=== PATIENT | female | born 1965 | race Caucasian/White ===

== ENCOUNTER 2024-11-03 15:00 | Outpatient (RCR) | payer OTHER, SELFPAY ==
--- NOTE | 2024-08-05 11:34 | OPREHPOC ---
Outpatient Therapy Plan of Care This is a Multidisciplinary Plan of Care that may contain components documented by all disciplines (PT, OT, and ST.) PT Problem 1 PT Problem #1 Knowledge Deficit PT Goal 1 Goal / Goal Update 1. Patient will perform independent HEP 2. Patient will verbalize urge suppression techniques Target Visit 2 PT Problem 2 PT Problem #2 Impaired Strength PT Goal 1 Goal / Goal Update 1. Improve pelvic floor strength to 4/5 to decrease incontinence 2. Improve pelvic floor endurance to 10 seconds to decrease incontinence Target Visit 4 PT Problem 3 PT Problem #3 Impaired Functional ADLs PT Goal 1 Goal / Goal Update 1. Patient able to hold urge to void at least 30 minutes to allow for running errands and doing activities at home Target Visit 4
--- NOTE | 2024-08-05 11:34 | PTOPEVAL1 ---
Assessment and note entered by Rosalba Lr DPT Evaluation Information Assessment Status Evaluation ICD-10 Condition Codes (PT) Weakness R53.1,Stress incontinence N39.3 Subjective Information Pt reports stress incontinence, worsening since 2022. Voids 6 times a day, and 2 more at night. Can hold urge less than 5 minutes. Feels urgency often when coming home and opening her door, being in the kitchen and hearing water running. Reports soreness if she tries to hold too long. Denies pain with urination. Incontinence multiple times a day, often occurs with walking down stairs, sneezing, coughing. Wears pads at all times, 5 a day. States she will not leave the house without them and plans ahead if she is ever leaving the house. BM daily, denies pain or fecal incontinence . Reports some low abdomen pain, not sure if it is truly pelvic pain (worsens with standing at work) . Highest pain in last week 3/10 and lowest 0/10. Pt has been 5 times, 3 deliveries ( vaginal deliveries). Significant tearing with her first and reports 69 stitches. Tubal ligation in 1989. Denies other b/b issues. Patient goal: strengthen pelvic floor Return to MD not currently scheduled. Reported Pain Level Pain Score 0: Self Report Assessment PT Clinical Summary The patient is presenting to skilled therapy with a history of stress incontinence and urinary urgency. She presents with decreased pelvic floor strength and endurance and decreased core strength which are contributing to her daily incontinence and difficulty with activities at home due to urgency. She will highly benefit from therapy to address her impairments in order to improve strength, reduce incontinence, and improve function. Plan of Care Interventions Manual Therapy,Neuro Re-education,Patient/ Caregiver Education,Therapeutic Activities, Therapeutic Exercise PT Services Indicated Yes Treatment Frequency and 1 time a week for 4 visits Duration These treatments will address the objective and functional deficits as defined above. The patient will be advanced safely and appropriately in order for the patient to progress towards his/her prior level of function. Additional exercises will be introduced and as well as a comprehensive home exercise program upon discharge, if needed, ?to ensure carryover of functional gains achieved in the clinic. This treatment plan has been reviewed and agreement upon by the patient.
--- NOTE | 2024-08-26 10:56 | PCPTNOTE ---
Patient did not show up for appointment on 08/26/24. Attempted to call patient but voicemail was not set up.
--- NOTE | 2024-09-01 12:51 | PCPTNOTE ---
Patient did not show up for appointment on 09/01/24. Called patient and left voicemail.
--- NOTE | 2024-09-15 14:08 | PCPTNOTE ---
Patient did not show up for appointment on 09/15/24. Called patient but unable to leave voicemail.
--- NOTE | 2024-09-29 13:46 | OPREHPOC ---
Outpatient Therapy Plan of Care This is a Multidisciplinary Plan of Care that may contain components documented by all disciplines (PT, OT, and ST.) PT Problem 1 PT Problem #1 Knowledge Deficit PT Goal 1 Goal / Goal Update 1. Patient will perform independent HEP 2. Patient will verbalize urge suppression techniques Target Visit 2 Progress Met PT Problem 2 PT Problem #2 Impaired Strength PT Goal 1 Goal / Goal Update 1. Improve pelvic floor strength to 4/5 to decrease incontinence 2. Improve pelvic floor endurance to 10 seconds to decrease incontinence update 09/29/24 1. improved to 3/5 2. met Target Visit 8 Progress Partially Met PT Problem 3 PT Problem #3 Impaired Functional ADLs PT Goal 1 Goal / Goal Update 1. Patient able to hold urge to void at least 30 minutes to allow for running errands and doing activities at home update 09/29/24 1. 15-20 minutes Target Visit 8
--- NOTE | 2024-09-29 13:46 | PTOPPROG ---
Assessment and note entered by Rosalba Lr DPT Evaluation Information Assessment Status Progress ICD-10 Condition Codes (PT) Weakness R53.1,Stress incontinence N39.3 Subjective Information Pt reports some things feel better since starting therapy. Voiding 6 times a day and 1 time at night . Can hold urge to void 15-20 minutes. Has been able to hold longer at work since I had no choice but then would notice some incontinence. Incontinence 2-3 times a day and notices it with movement. Using 3-4 pads a day. Assessment PT Clinical Summary The patient has made some progress in therapy. She reports improved ability to hold urge to void up to 20 minutes and is using less pads per day. She continues to have incontinence multiple times a day. She demonstrates improved hip and pelvic floor strength. Progress in therapy has been somewhat limited by attendance and patient dealing with hip pain (MRI pending). Due to her progress but continued daily incontinence she will highly benefit from further therapy to reduce incontinence and improve function. Plan of Care Interventions Manual Therapy,Neuro Re-education,Patient/ Caregiver Education,Therapeutic Activities, Therapeutic Exercise PT Services Indicated No Treatment Frequency and 1 time a week for 4 visits Duration These treatments will address the objective and functional deficits as defined above. The patient will be advanced safely and appropriately in order for the patient to progress towards his/her prior level of function. Additional exercises will be introduced and as well as a comprehensive home exercise program upon discharge, if needed, ?to ensure carryover of functional gains achieved in the clinic. This treatment plan has been reviewed and agreement upon by the patient.
--- NOTE | 2024-10-20 14:36 | PCPTNOTE ---
Patient called to cancel appointment 10/20/24 due to not feeling well.
--- NOTE | 2024-11-03 15:49 | OPREHPOC ---
Outpatient Therapy Plan of Care This is a Multidisciplinary Plan of Care that may contain components documented by all disciplines (PT, OT, and ST.) PT Problem 1 PT Problem #1 Knowledge Deficit PT Goal 1 Goal / Goal Update 1. Patient will perform independent HEP 2. Patient will verbalize urge suppression techniques Target Visit 2 Progress Met PT Problem 2 PT Problem #2 Impaired Strength PT Goal 1 Goal / Goal Update 1. Improve pelvic floor strength to 4/5 to decrease incontinence 2. Improve pelvic floor endurance to 10 seconds to decrease incontinence update 09/29/24 1. improved to 3/5 2. met update 11/03/24 1. no change Target Visit 8 Progress Partially Met PT Problem 3 PT Problem #3 Impaired Functional ADLs PT Goal 1 Goal / Goal Update 1. Patient able to hold urge to void at least 30 minutes to allow for running errands and doing activities at home update 09/29/24 1. 15-20 minutes update 11/03/24 1. no change Target Visit 8 Progress Not Met
--- NOTE | 2024-11-03 15:50 | PTOPDC ---
Assessment and note entered by Rosalba Lr DPT Evaluation Information Assessment Status Discharge ICD-10 Condition Codes (PT) Weakness R53.1,Stress incontinence N39.3 Subjective Information Pt reports she is not any better than she was a month ago. Having trouble sleeping and voiding 8 times a day. Can hold urge to void 10 minutes. Incontinence continues to be multiple times a day and averaging 3 pads a day. Reported Pain Level Pain Score 0: Self Report Assessment PT Clinical Summary The patient has reached a plateau in progress at this time. Over the last month she reports no changes to symptoms and continues to demonstrate the same pelvic floor and core weakness. Discharge is recommended at this time and patient has been issued final HEP. Plan of Care PT Services Indicated No
== END 2024-11-03 23:59 | disposition home or self-care (01) ==
LOC: ANHPT 15:00
PROVIDERS: PCP Internal Medicine; Visit Provider Emergency Medicine
DX: N39.3 Stress incontinence (female) (male) (principal)
CPT/HCPCS: 97112; 97161; 97530